=== PATIENT | male | born 1990 | race Caucasian/White ===

== ENCOUNTER 2021-09-20 17:39 | Emergency (ER) | payer SELFPAY | END 2021-09-20 19:00 | disposition home or self-care (01) | LOC: MW.ED 17:39 | DX: S83.92XA Sprain of unspecified site of left knee, initial encounter (principal); Z72.0 Tobacco use; W01.0XXA Fall on same level from slipping, tripping and stumbling without subsequent striking against object, initial encounter | CPT/HCPCS: 73562-26-LT; 73562-LT; 99282; 99283-25 ==